=== PATIENT | male | born 1950 | race Caucasian/White ===

== ENCOUNTER → 2018-10-30 08:27 | Outpatient (CLI) | payer MEDICARE, OTHER, SELFPAY ==
[2018-10-30 10:33] LABS: Microalbumin,Random Urine < 5.0 mg/L (NO RANGE EST.)
[2018-10-30 10:38] LABS: Absolute Lymphocyte Count 1.74 X10^3/ul (0.83-4.51); Absolute Neutrophil Count 7.2 X10^3/uL (2.0-7.7); Basophil# 0.01 X10^3/uL; Basophil% 0.1 % (0-1); Hematocrit 50.5 % (40-54); Hemoglobin 16.7 g/dl (13.0-16.5); Lymphocyte # 1.74 X10^3/ul (4.0); Lymphocyte % 17.4 % (19-41); Mean Corp Hgb Conc 33.1 g/gl (32-36); Mean Corpuscular Hgb 30.8 pg (27.0-32.0); Mean Corpuscular Volume 93.2 fL (80-94); Mean Platelet Vol. 10.6 fl (6.2-12.0); Monocyte# 0.96 X10^3/uL; Monocyte% 9.6 % (0-10); Neutrophil # 7.17 X10^3/uL (2.7-7.7); Neutrophil % 71.6 % (47-70); Platelet Count 234 K/mm3 (150-450); RBC Distribution Width CV 13.2 % (11.6-14.6); Red Blood Count 5.42 M/mm3 (4.6-6.2)
[2018-10-30 10:39] LABS: POSITIVE COUNT NO; POSITIVE DIFFERENTIAL NO; POSITIVE MORPHOLOGY NO
[2018-10-30 10:55] LABS: ALB/GLOB Ratio 1.1 RATIO (0.9-2.4); AST(SGOT) 15 U/L (15-37); Alanine Aminotransfer ALT/SGPT 30 U/L (16-61); Albumin, Serum 3.7 g/dL (3.2-5.0); Alkaline Phosphatase 102 U/L (45-117); Anion Gap 7 (5-15); BUN 23 mg/dL (7-18); BUN/Creat Ratio 25.2 RATIO (10-20); Chloride 104 mmol/L (98-107); Cholesterol 184 mg/dL (200); Creatinine, Serum 0.91 mg/dL (0.70-1.30); EST Glomerular Filtration Rate 88 mL/min (>60); Est Glom Filt Rate - Afr Amer 107 mL/min (>60); Globulin 3.4 g/dL (2.2-4.2); Glucose 92 mg/dL (74-106); High Density Lipoprotein 59 mg/dL; Potassium 4.3 mmol/L (3.5-5.1); Protein, Total 7.1 g/dL (6.4-8.2); Sodium Level 139 mmol/L (136-145); Thyroid Stim Hormone (TSH) 1.76 uIU/mL (0.358-3.74); Triglycerides 96 mg/dL; Very Low Density Lipoprotein 19 mg/dL (5-40)
[2018-10-30 11:16] LABS: Vitamin D,25 Hydroxy 54.7 ng/mL (29.95-100.01)
--- OUTSIDE RECORDS SUMMARY | 2018-12-16 06:39 | XMS RPT_ITS ---
:1950 Author Organization OH[facility] Care Team Providers Name Role Phone Reid Maldonado Attending Unavailable Reid Maldonado Primary Care Unavailable PROBLEMS PROBLEMS No Problem Records FoundPROCEDURES PROCEDURES No Procedure Records FoundRESULTS RESULTS MICROALB:CREAT Collected: 10/30/2018 Status: F Source: [facility] 8:31 AM [facility] [place], [place] REPOSITORY TYPE CODE TESTS RESULT OUT OF RANGE REFERENCE UNITS LAB L501.1200 NO RANGE EST. mg/dL Normal UR 110.00 CREAT LAB L502.0500 NO RANGE EST. mg/L < 5.0 Normal MICROALBUMI N,UR LAB L502.0600 <30 mg/g CRE mg/g CRE Test Normal not performed MALB:CREAT Performed By: #### L502.0250, L100.0100, L500.4050, L500.4100, L501.9520, L506.1000 #### [facility] [address] [place], [place], [address] CBC W/DIFF, AUTOMATED Collected: 10/30/2018 Status: F Source: [place] 8:31 AM [facility] [place], [place] REPOSITORY TYPE CODE TESTS RESULT OUT OF RANGE REFERENCE UNITS LAB L100.1000 4.4-11.0 K/mm3 Normal WBC 10.0 LAB L100.1200 4.6-6.2 M/mm3 Normal RBC 5.42 LAB L100.1300 13.0-16.5 g/dl High HGB 16.7 LAB L100.1400 40-54 % Normal HCT 50.5 LAB L100.1500 80-94 fL Normal MCV 93.2 LAB L100.1600 27.0-32.0 pg Normal MCH 30.8 LAB L100.1700 32-36 g/gl Normal MCHC 33.1 LAB L100.1810 11.6-14.6 % Normal RDW CV 13.2 LAB L100.1820 35.1-43.9 fl High RDW SD 45.0 LAB L100.1900 150-450 K/mm3 Normal PLT 234 LAB L100.2000 6.2-12.0 fl Normal MPV 10.6 LAB L100.2100 47-70 % High NEUT% 71.6 LAB L100.2200 19-41 % Low LY% 17.4 LAB L100.2300 0-10 % Normal MONO% 9.6 LAB L100.2400 0-5 % Normal EO% 1.0 LAB L100.2500 0-1 % Normal BASO% 0.1 LAB L100.2550 0.0-0.9 % Normal IM GRAN % 0.300 Result Comment: IG% - Immature Granulocytes (promyelocytes, myelocytes and metamyelocytes) > 1% indicates that a LEFT SHIFT is Present. LAB L100.2620 2.0-7.7 X10 3/uL Normal Absolute Neut 7.2 LAB L100.2720 0.83-4.51 X10 3/ul Normal Absolute Lymph 1.74 Performed By: #### L502.0250, L100.0100, L500.4050, L500.4100, L501.9520, L506.1000 #### [facility] [address] [place], [place], [address] COMPREHENSIVE METABOLIC Collected: 10/30/2018 Status: F Source: [facility] 8:31 AM [facility] [place] [place] REPOSITORY TYPE CODE TESTS RESULT OUT OF RANGE REFERENCE UNITS LAB L501.0100 74-106 mg/dL Normal GLU 92 Result Comment: Please note revised GLUCOSE reference range effective 2017. LAB L501.1000 7-18 mg/dL High BUN 23 LAB L501.1100 0.70-1.30 mg/dL Normal CREAT,SERUM 0.91 Result Comment: The validity of the calculated GFR AND GFRAA in patients over 70 years has not been determined. Clinical correlation is essential. LAB L501.1110 >60 mL/min Normal EST GFR 88 Result Comment: Non- GFR Calc LAB L501.1115 >60 mL/min Normal EST GFR - AA 107 Result Comment: GFR Calc LAB L501.1300 10-20 RATIO High BUN/CRE 25.2 LAB L501.1500 6.4-8.2 g/dL T Normal PROT 7.1 LAB L501.1800 3.2-5.0 g/dL Normal ALB 3.7 LAB L501.1950 2.2-4.2 g/dL Normal GLOB 3.4 LAB L501.2000 0.9-2.4 RATIO Normal A/G 1.1 LAB L501.2200 8.5-10.1 mg/dL CA Normal 9.0 LAB L501.4100 15-37 U/L Normal AST 15 LAB L501.4305 45-117 U/L Normal ALK P 102 LAB L501.4405 16-61 U/L Normal ALT 30 LAB L501.4600 0.20-1.00 mg/dL T Normal BILI 0.70 LAB L501.5300 136-145 mmol/L NA Normal 139 LAB L501.5600 3.5-5.1 mmol/L K Normal 4.3 LAB L501.5900 98-107 mmol/L CL Normal 104 LAB L501.6100 21.0-32.0 mmol/L Normal CO2 28.0 LAB L501.6200 5-15 Normal GAP 7 Performed By: #### L502.0250, L100.0100, L500.4050, L500.4100, L501.9520, L506.1000 #### [facility] [address] [place], [place], [address] LIPID PROFILE Collected: 10/30/2018 Status: F Source: [place] 8:31 AM [facility] [place] [place] REPOSITORY TYPE CODE TESTS RESULT OUT OF RANGE REFERENCE UNITS LAB L501.4900 200 mg/dL Normal CHOL 184 Result Comment: <200 mg/dL Desirable 200-240 mg/dL Borderline >240 mg/dL High Risk LAB L501.5000 mg/dL Normal TRIG 96 Result Comment: The drugs N-Acetylcysteine and Metamizole may falsely depress this assay. Serum Triglycerides Reference Interval Normal <150 mg/dL Borderline high 150 - 199 mg/dL High 200 - 499 mg/dL Very High > or = 500 mg/dL LAB L501.6400 mg/dL Normal HDL 59 Result Comment: The drugs N-Acetylcysteine and Metamizole may falsely depress this assay. Reference Range HDL <40 mg/dL Low HDL Cholesterol HDL >or= 60 mg/dL High HDL Cholesterol LAB L501.6500 0-130 mg/dL Normal LDL 106 LAB L501.6600 5-40 mg/dL Normal VLDL 19 Performed By: #### L502.0250, L100.0100, L500.4050, L500.4100, L501.9520, L506.1000 #### [facility] [address] [place], [address] THYROID STIM HORMONE Collected: 10/30/2018 Status: F Source: [place] [facility] 8:31 AM [facility] [place] [place] REPOSITORY TYPE CODE TESTS RESULT OUT OF RANGE REFERENCE UNITS LAB L501.9520 0.358-3.74 uIU/mL Normal TSH 1.76 Performed By: #### L502.0250, L100.0100, L500.4050, L500.4100, L501.9520, L506.1000 #### [facility] [address] [place], [address] VITAMIN D,25 HYDROXY Collected: 10/30/2018 Status: F Source: [place] 8:31 AM [facility] [place] [place] REPOSITORY TYPE CODE TESTS RESULT OUT OF RANGE REFERENCE UNITS LAB L506.1000 29.95-100.01 ng/mL Normal Vitamin D 54.7 25-OH Result Comment: Vitamin D 25(OH) Status Range Deficiency <20 ng/mL (50nmol/L) Insuffciency 20 - 30 ng/mL (50 - 75 nmol/L) Sufficiency 30 - 100 ng/mL (75 - 250 nmol/L) Toxicity >100 ng/mL (>250 nmol/L) Performed By: #### L502.0250, L100.0100, L500.4050, L500.4100, L501.9520, L506.1000 #### [facility] [address] [place], [address] PROGRESS Observed: 04/18/2018 Status: COMPLETED Source: [employer] 11:23 AM [facility] [place] REPOSITORY HNO ID: [id number] Author: Danielle (Pt) JOSE ANTONIO Lopez Service: (none) Author Type: Physical Therapist Type: Progress Notes Filed: 04/18/2018 11:24 AM Note Text: [facility]ER[facility] PHYSICAL THERAPY DISCONTINUANCE OF CARE Plan of Care Period: Start of Care Date: 02/14/18 Last Visit Date: 03/08/18 Therapy Program: The following is a summary of the interventions provided for this episode of care; Therapeutic exercise, Manual therapy, Therapeutic activities and Patient/Family/Caregiver Education Assessment: The following is the goal status: Goal status as of 03/08/18 Goals for Episode of Care: created on 02/14/18 through 04/15/18 Independent in home exercises. Met Patient will decrease pain rating by 2 points to meet minimal clinical important difference for numeric pain rating scale. 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 Partially Met Maintain proper sitting posture throughout session. Met Patient will be able to tolerate sitting for 30 minutes without increased Symptoms. Met Patient will increase flexibility of hamstring to WNL to improve ability to maintain proper posture and restore normal mechanics. Met Patient will improve his/her AM-PAC T-scale score by 4 points to indicate a Minimal Clinical Important Difference. Initial score 59.46 Not met. Score increased by 1 point only. G CODE REPORTING Based on clinical assessment and the score on the AM-PAC Scale Score Assessment Tool, the G code and corresponding severity modifiers are documented below. Evaluation: 02/14/2018 Current Status: Mobility: Walking and Moving Around: G8978 CJ 20-39% impaired Goal Status: Mobility: Walking and Moving Around: G8979 CI 1-19% impaired Progress Report: 03/08/2018 Current Status: Mobility: Walking and Moving Around: G8978 CJ 20-39% impaired Goal Status: Mobility: Walking and Moving Around: G8979 CI 1-19% impaired Based on the most recent progress report, patient was progressing slower than expected toward functional goals based on pain levels, documented subjective information on progress and documented objective information regarding strength and overall function. Reason for Discontinuation of Care: Patient has not returned to therapy or scheduled additional follow-up appointments. Danielle Lopez PT PROGRESS Observed: 03/08/2018 Status: COMPLETED Source: [employer] 11:13 AM [facility] REPOSITORY HNO ID: [id number] Author: Danielle (Pt) JOSE ANTONIO Lopez Service: (none) Author Type: Physical Therapist Type: Progress Notes Filed: 03/08/2018 11:21 AM Note Text: Episode Visit Count: 7 Therapist That Will Oversee The Plan Of Care: Brandon Lopez Start of Care Date: 02/14/18 Onset Date: 12/17/17 Plan of Care Certification Date: 02/14/18 Patient Identified by Name and Date of : Yes REHABILITATION AND SPORTS THERAPY PHYSICAL THERAPY PROGRESS REPORT PLAN OF CARE UPDATE: Assessment: Prema Shaikh exhibits difficulty with continued instability and need for frequent change in position and improvements in overall lumbar ROM and flexibility. He continues to be limited with heavy exertion. He is progressing slower than expected towards his therapy goals as demonstrated by: pain levels, documented subjective information on progress and documented objective information regarding patient reported outcome measures. Further therapy is pending physician follow up tomorrow. Functional gains: Improved postural awareness Increased independence with HEP Goal status as of 03/08/18 Goals for Episode of Care: created on 02/14/18 through 04/15/18 Independent in home exercises. Met Patient will decrease pain rating by 2 points to meet minimal clinical important difference for numeric pain rating scale. 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 Partially Met Maintain proper sitting posture throughout session. Met Patient will be able to tolerate sitting for 30 minutes without increased Symptoms. Met Patient will increase flexibility of hamstring to WNL to improve ability to maintain proper posture and restore normal mechanics. Met Patient will improve his/her AM-PAC T-scale score by 4 points to indicate a Minimal Clinical Important Difference. Initial score 59.46 Not met. Score increased by 1 point only. G CODE REPORTING Based on clinical assessment and the score on the AM-PAC Scale Score Assessment Tool, the G code and corresponding severity modifiers are documented below. Evaluation: 02/14/2018 Current Status: Mobility: Walking and Moving Around: G8978 CJ 20-39% impaired Goal Status: Mobility: Walking and Moving Around: G8979 CI 1-19% impaired Progress Report: 03/08/2018 Current Status: Mobility: Walking and Moving Around: G8978 CJ 20-39% impaired Goal Status: Mobility: Walking and Moving Around: G8979 CI 1-19% impaired Planned Interventions, Frequency, and Duration: , Patient to be seen for PLAN FOR NEXT VISIT: hold therapy pending physician visit SUBJECTIVE: No significant change in symptoms. Does note some increased ease in lumbar extension, strength and balance. Sees physician tomorrow for possible spine injection. Pain Score: 5/10 Pain Location: Back;Hip - Left Description: Pressure Frequency: Continuous Post Treatment Pain Score: 6/10 Pain Location: Back Post Treatment Pain Description: Pressure OBJECTIVE MEASURES WITH LEVEL OF FUNCTION: Posture / Alignment Posture: Decreased lumbar lordosis LE Observations: more symmetrical WBing vs at evaluation Balance Static Standing Balance: Single Leg Stance Single Leg Stance: 10 sec R/L Lumbar Spine AROM Lumbar Flexion: Minimal limitation Lumbar Extension: Moderate limitation Lumbar R Side Chambers: Moderate limitation Lumbar L Side Chambers: Moderate limitation Lumbar R Rotation: Moderate limitation Lumbar L Rotation: Moderate limitataion LE Flexibility R Hamstring Flexibility: WFL L Hamstring Flexibility: WFL R Hip Flexor Flexibility: WFL L Hip Flexor Flexibility: WFL LE Strength R Hip Extension: 4+/5 L Hip Extension: 4+/5 TREATMENT: Therapeutic Exercise: 1: PPU with manual over pressure 10x 2 2: repex 16 degrees extensiom 6 degrees flexion 4.5 rpm 60 cycles 3: SLS R/L 4: seated decompression breathing Skilled Intervention: Patient was educated in proper exercise technique and purpose for exercises. Skilled judgment was provided in selection of appropriate interventions. Correct performance of therapeutic exercises was facilitated with verbal and tactile cuing. Manual over pressure for prone press up provided. Verbal review of home exercise program and instruction of progression of activity. Billing: Clarisse: Therapeutic Exercise ([id number]): 1:1 time: 45 minutes (3 units: 38-52 mins) Total time: 45 minutes Danielle Lopez PT CNTHERAPY Observed: 03/08/2018 Status: COMPLETED Source: [employer] 9:15 AM [facility] REPOSITORY OT/PT/Speech Visit (LDPT) PREMA SHAIKH ([id number]) 1950 M MACY Date Time Provider Department 03/08/18 9:15 AM DANIELLE LOPEZ (PT) LDPT Date Time Provider Department Center 03/08/2018 9:15 AM [id number], CHRISTI *LDPT [facility] [address] Reason for Visit: Physical Therapy [503] PT Progress Note [1596] PT Discharge [752] Reason For Visit History Recorded Primary Visit Diagnosis:Chronic midline low back pain with right-sided sciatica [M54.41, G89.29] Other Visit Diagnosis:Posture abnormality [R29.3] Allergies As of Date: 03/08/2018 Noted Allergy Reaction SEASONAL ALLERGIES 09/30/2014 14 - Other: See Comments Comments: Sneezing Date Reviewed: 02/14/2018 Reviewed by: Danielle (Pt) JOSE ANTONIO Lopez - Fully Assessed Prescriptions as of 03/08/2018 Sig: BLINK TEARS LUBRICATING EYE D* Use in both eyes as needed. FENOFIBRATE 160 MG TABLET Take 160 mg by mouth once benjamin* TIZANIDINE 4 MG CAPSULE Take 4 mg by mouth three time* ETODOLAC 400 MG TABLET Take 400 mg by mouth twice da* TRAMADOL 50 MG TABLET Take 50 mg by mouth every 6 h* ZINC MAGNESIUM 250 MG TABLET Take 250 mg by mouth. ASPIRIN 81 MG TABLET,DELAYED * Take 81 mg by mouth once mary* BUPRENORPHINE 10 MCG/HOUR WEE* Apply 1 Patch as directed onc* Progress Notes: Danielle Lopez, PT, PT 03/08/2018 11:21 AM Signed Episode Visit Count: 7 Therapist That Will Oversee The Plan Of Care: Brandon Lopez Start of Care Date: 02/14/18 Onset Date: 12/17/17 Plan of Care Certification Date: 02/14/18 Patient Identified by Name and Date of : Yes REHABILITATION AND SPORTS THERAPY PHYSICAL THERAPY PROGRESS REPORT PLAN OF CARE UPDATE: Assessment: Prema Shaikh exhibits difficulty with continued instability and need for frequent change in position and improvements in overall lumbar ROM and flexibility. He continues to be limited with heavy exertion. He is progressing slower than expected towards his therapy goals as demonstrated by: pain levels, documented subjective information on progress and documented objective information regarding patient reported outcome measures. Further therapy is pending physician follow up tomorrow. Functional gains: Improved postural awareness Increased independence with HEP Goal status as of 03/08/18 Goals for Episode of Care: created on 02/14/18 through 04/15/18 Independent in home exercises. Met Patient will decrease pain rating by 2 points to meet minimal clinical important difference for numeric pain rating scale. 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 Partially Met Maintain proper sitting posture throughout session. Met Patient will be able to tolerate sitting for 30 minutes without increased Symptoms. Met Patient will increase flexibility of hamstring to WNL to improve ability to maintain proper posture and restore normal mechanics. Met Patient will improve his/her AM-PAC T-scale score by 4 points to indicate a Minimal Clinical Important Difference. Initial score 59.46 Not met. Score increased by 1 point only. G CODE REPORTING Based on clinical assessment and the score on the AM-PAC Scale Score Assessment Tool, the G code and corresponding severity modifiers are documented below. Evaluation: 02/14/2018 Current Status: Mobility: Walking and Moving Around: G8978 20-39% impaired Goal Status: Mobility: Walking and Moving Around: G8979 CI 1-19% impaired Progress Report: 03/08/2018 Current Status: Mobility: Walking and Moving Around: G8978 CJ 20-39% impaired Goal Status: Mobility: Walking and Moving Around: G8979 CI 1-19% impaired Planned Interventions, Frequency, and Duration: , Patient to be seen for PLAN FOR NEXT VISIT: hold therapy pending physician visit SUBJECTIVE: No significant change in symptoms. Does note some increased ease in lumbar extension, strength and balance. Sees physician tomorrow for possible spine injection. Pain Score: 5/10 Pain Location: Back;Hip - Left Description: Pressure Frequency: Continuous Post Treatment Pain Score: 6/10 Pain Location: Back Post Treatment Pain Description: Pressure OBJECTIVE MEASURES WITH LEVEL OF FUNCTION: Posture / Alignment Posture: Decreased lumbar lordosis LE Observations: more symmetrical WBing vs at evaluation Balance Static Standing Balance: Single Leg Stance Single Leg Stance: 10 sec R/L Lumbar Spine AROM Lumbar Flexion: Minimal limitation Lumbar Extension: Moderate limitation Lumbar R Side Chambers: Moderate limitation Lumbar L Side Chambers: Moderate limitation Lumbar R Rotation: Moderate limitation Lumbar L Rotation: Moderate limitataion LE Flexibility R Hamstring Flexibility: WFL L Hamstring Flexibility: WFL R Hip Flexor Flexibility: WFL L Hip Flexor Flexibility: WFL LE Strength R Hip Extension: 4+/5 L Hip Extension: 4+/5 TREATMENT: Therapeutic Exercise: 1: PPU with manual over pressure 10x 2 2: repex 16 degrees extensiom 6 degrees flexion 4.5 rpm 60 cycles 3: SLS R/L 4: seated decompression breathing Skilled Intervention: Patient was educated in proper exercise technique and purpose for exercises. Skilled judgment was provided in selection of appropriate interventions. Correct performance of therapeutic exercises was facilitated with verbal and tactile cuing. Manual over pressure for prone press up provided. Verbal review of home exercise program and instruction of progression of activity. Billing: Clarisse: Therapeutic Exercise ([id number]): 1:1 time: 45 minutes (3 units: 38-52 mins) Total time: 45 minutes Danielle Lopez, PT Danielle Lopez, PT, PT 04/18/2018 11:24 AM Signed [facility] PHYSICAL THERAPY DISCONTINUANCE OF CARE Plan of Care Period: Start of Care Date: 02/14/18 Last Visit Date: 03/08/18 Therapy Program: The following is a summary of the interventions provided for this episode of care; Therapeutic exercise, Manual therapy, Therapeutic activities and Patient/Family/Caregiver Education Assessment: The following is the goal status: Goal status as of 03/08/18 Goals for Episode of Care: created on 02/14/18 through 04/15/18 Independent in home exercises. Met Patient will decrease pain rating by 2 points to meet minimal clinical important difference for numeric pain rating scale. 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 Partially Met Maintain proper sitting posture throughout session. Met Patient will be able to tolerate sitting for 30 minutes without increased Symptoms. Met Patient will increase flexibility of hamstring to WNL to improve ability to maintain proper posture and restore normal mechanics. Met Patient will improve his/her AM-PAC T-scale score by 4 points to indicate a Minimal Clinical Important Difference. Initial score 59.46 Not met. Score increased by 1 point only. G CODE REPORTING Based on clinical assessment and the score on the AM-PAC Scale Score Assessment Tool, the G code and corresponding severity modifiers are documented below. Evaluation: 02/14/2018 Current Status: Mobility: Walking and Moving Around: G8978 CJ 20-39% impaired Goal Status: Mobility: Walking and Moving Around: G8979 CI 1-19% impaired Progress Report: 03/08/2018 Current Status: Mobility: Walking and Moving Around: G8978 20-39% impaired Goal Status: Mobility: Walking and Moving Around: G8979 CI 1-19% impaired Based on the most recent progress report, patient was progressing slower than expected toward functional goals based on pain levels, documented subjective information on progress and documented objective information regarding strength and overall function. Reason for Discontinuation of Care: Patient has not returned to therapy or scheduled additional follow-up appointments. Danielle Lopez PT Letter Text PROGRESS Observed: 03/06/2018 Status: COMPLETED Source: [employer] 12:55 PM [facility] REPOSITORY HNO ID: [id number] Author: Miguel (Aysha) JOSE ANTONIO Aleman ASSIST Service: (none) Author Type: Precinct Captain Type: Progress Notes Filed: 03/06/2018 12:59 PM Note Text: Episode Visit Count: 6 Therapist That Will Oversee The Plan Of Care: Brandon Lopez Start of Care Date: 02/14/18 Onset Date: 12/17/17 Plan of Care Certification Date: 02/14/18 Patient Identified by Name and Date of : Yes REHABILITATION AND SPORTS THERAPY PHYSICAL THERAPY TREATMENT NOTE ASSESSMENT: Prema Shaikh demonstrated difficulty with improving mobility of lumbar spine. The patient will continue to benefit from continued skilled physical therapy for ROM of lumbar and sacral spine PLAN FOR NEXT VISIT: continue to address lumbar and sacral mobility, nueral glides bilateral le and core stabiity SUBJECTIVE: Pt reports large bruise on hip from fall last week, pt with 6-7/10 pain vs baseline of 5/10 unsure of cause of increased back pain. Pain Score: 7/10 Pain Location: Back;Hip - Left Description: Pressure Frequency: Continuous OBJECTIVE MEASURES WITH LEVEL OF FUNCTION: Pt no change in mobility of lumbar spine. TREATMENT: Therapeutic Exercise: 1: prone over thera ball, with pressure inferiorly on sacrum 30 sec x 4 2: repex 16 degrees extensiom 6 degrees flexion 4.0 rpm 40 cycles 3: hooklying lat pull downs denis tb 10 x 2 4: seated on t ball narrow base of support 30 sec, then chest press with lateral pull denis tb 10 x 2 r/l 5: SLS right/ left 10 sec x 4* l/r 6: slant board 2 min 7: manual hamstring stretch 30 sec x3, r/l Skilled Intervention: Patient was educated in proper exercise technique and purpose for exercises. Billing: Clarisse: Therapeutic Exercise ([id number]): 1:1 time: 45 minutes (3 units: 38-52 mins) Total time: 45 minutes Miguel Aleman PTA CNTHERAPY Observed: 03/06/2018 Status: COMPLETED Source: [employer] 7:45 AM [facility] REPOSITORY OT/PT/Speech Visit (LDPT) PREMA SHAIKH ([id number]) 1950 M [facility] Date Time Provider Department 03/06/18 7:45 AM MIGUEL ALEMAN (AYSHA) LDPT Date Time Provider Department Center 03/06/2018 7:45 AM [id number], PATRICK *LDPT [facility] [address] Reason for Visit: Physical Therapy [503] Primary Visit Diagnosis:Chronic midline low back pain with right-sided sciatica [M54.41, G89.29] Other Visit Diagnosis:Posture abnormality [R29.3] Allergies As of Date: 03/06/2018 Noted Allergy Reaction SEASONAL ALLERGIES 09/30/2014 14 - Other: See Comments Comments: Sneezing Date Reviewed: 02/14/2018 Reviewed by: Danielle (Pt) JOSE ANTONIO Lopez - Fully Assessed Prescriptions as of 03/06/2018 Sig: BLINK TEARS LUBRICATING EYE D* Use in both eyes as needed. FENOFIBRATE 160 MG TABLET Take 160 mg by mouth once benjamin* TIZANIDINE 4 MG CAPSULE Take 4 mg by mouth three time* ETODOLAC 400 MG TABLET Take 400 mg by mouth twice da* TRAMADOL 50 MG TABLET Take 50 mg by mouth every 6 h* ZINC MAGNESIUM 250 MG TABLET Take 250 mg by mouth. ASPIRIN 81 MG TABLET,DELAYED * Take 81 mg by mouth once mary* BUPRENORPHINE 10 MCG/HOUR WEE* Apply 1 Patch as directed onc* Progress Notes: Miguel Aleman PTA, PT ASSIST 03/06/2018 12:59 PM Signed Episode Visit Count: 6 Therapist That Will Oversee The Plan Of Care: Brandon Lopez Start of Care Date: 02/14/18 Onset Date: 12/17/17 Plan of Care Certification Date: 02/14/18 Patient Identified by Name and Date of : Yes REHABILITATION AND SPORTS THERAPY PHYSICAL THERAPY TREATMENT NOTE ASSESSMENT: Prema Shaikh demonstrated difficulty with improving mobility of lumbar spine. The patient will continue to benefit from continued skilled physical therapy for ROM of lumbar and sacral spine PLAN FOR NEXT VISIT: continue to address lumbar and sacral mobility, nueral glides bilateral le and core stabiity SUBJECTIVE: Pt reports large bruise on hip from fall last week, pt with 6-7/10 pain vs baseline of 5/10 unsure of cause of increased back pain. Pain Score: 7/10 Pain Location: Back;Hip - Left Description: Pressure Frequency: Continuous OBJECTIVE MEASURES WITH LEVEL OF FUNCTION: Pt no change in mobility of lumbar spine. TREATMENT: Therapeutic Exercise: 1: prone over thera ball, with pressure inferiorly on sacrum 30 sec x 4 2: repex 16 degrees extensiom 6 degrees flexion 4.0 rpm 40 cycles 3: hooklying lat pull downs denis tb 10 x 2 4: seated on t ball narrow base of support 30 sec, then chest press with lateral pull denis tb 10 x 2 r/l 5: SLS right/ left 10 sec x 4* l/r 6: slant board 2 min 7: manual hamstring stretch 30 sec x3, r/l Skilled Intervention: Patient was educated in proper exercise technique and purpose for exercises. Billing: Clarisse: Therapeutic Exercise ([id number]): 1:1 time: 45 minutes (3 units: 38-52 mins) Total time: 45 minutes Miguel Aleman PTA PROGRESS Observed: 03/01/2018 Status: COMPLETED Source: [employer] 9:35 AM [facility] REPOSITORY HNO ID: [id number] Author: Miguel Romero) JOSE ANTONIO Aleman ASSIST Service: (none) Author Type: Precinct Captain Type: Progress Notes Filed: 03/01/2018 9:47 AM Note Text: Episode Visit Count: 5 Therapist That Will Oversee The Plan Of Care: Brandon Lopez Start of Care Date: 02/14/18 Onset Date: 12/17/17 Plan of Care Certification Date: 02/14/18 Patient Identified by Name and Date of : Yes REHABILITATION AND SPORTS THERAPY PHYSICAL THERAPY TREATMENT NOTE ASSESSMENT: Prema Shaikh demonstrated difficulty with stability and balance with static and dynamic activities. The patient will continue to benefit from continued skilled physical therapy for lumbar and sacral mobility, and core stability. PLAN FOR NEXT VISIT: lumbar and sacral mobility SUBJECTIVE: Pt reports fell down steps today going to the bathroom landed on left thigh, back has normal 5/10 pain, left hip just sore Pain Score: 5/10 Pain Location: Back;Hip - Left Description: Pressure (pinching) Frequency: Continuous Post Treatment Pain Score: 5/10 Pain Location: Back Post Treatment Pain Description: Pressure (pinching) OBJECTIVE MEASURES WITH LEVEL OF FUNCTION: Pt with decreased mobility of sacrum with flexion and extension. TREATMENT: Therapeutic Exercise: 1: prone over thera ball, with pressure inferiorly on sacrum 30 sec x 4* 2: PPU with over pressure, PPU with exhale 10 x2 3: hooklying LTR L<=>R 5 x 4: foundation pose 5 sec 5 x 2 5: SLS right/ left 10 sec x 4* l/r 6: SLS with ball toss and catch 10 x R/L Skilled Intervention: Patient was educated in proper exercise technique and purpose for exercises. Reviewed and educated patient on additions/changes for home exercise program as above (*) Billing: Clarisse: Therapeutic Exercise ([id number]): 1:1 time: 45 minutes (3 units: 38-52 mins) Total time: 45 minutes Miguel Aleman PTA CNTHERAPY Observed: 03/01/2018 Status: COMPLETED Source: [employer] 7:45 AM [facility] REPOSITORY OT/PT/Speech Visit (LDPT) PREMA SHAIKH ([id number]) 1950 M [facility] Date Time Provider Department 03/01/18 7:45 AM MIGUEL ALEMAN (SPORTS NUTRITIONIST) LDPT Date Time Provider Department Center 03/01/2018 7:45 AM [id number], PATRICK *LDPT [facility] [address] Reason for Visit: Physical Therapy [503] Primary Visit Diagnosis:Chronic midline low back pain with right-sided sciatica [M54.41, G89.29] Other Visit Diagnosis:Posture abnormality [R29.3] Allergies As of Date: 03/01/2018 Noted Allergy Reaction SEASONAL ALLERGIES 09/30/2014 14 - Other: See Comments Comments: Sneezing Date Reviewed: 02/14/2018 Reviewed by: Danielle (Pt) JOSE ANTONIO Lopez - Fully Assessed Prescriptions as of 03/01/2018 Sig: BLINK TEARS LUBRICATING EYE D* Use in both eyes as needed. FENOFIBRATE 160 MG TABLET Take 160 mg by mouth once benjamin* TIZANIDINE 4 MG CAPSULE Take 4 mg by mouth three time* ETODOLAC 400 MG TABLET Take 400 mg by mouth twice da* TRAMADOL 50 MG TABLET Take 50 mg by mouth every 6 h* ZINC MAGNESIUM 250 MG TABLET Take 250 mg by mouth. ASPIRIN 81 MG TABLET,DELAYED * Take 81 mg by mouth once mary* BUPRENORPHINE 10 MCG/HOUR WEE* Apply 1 Patch as directed onc* Progress Notes: Miguel Aleman PTA, PT ASSIST 03/01/2018 9:47 AM Signed Episode Visit Count: 5 Therapist That Will Oversee The Plan Of Care: Brandon Lopez Start of Care Date: 02/14/18 Onset Date: 12/17/17 Plan of Care Certification Date: 02/14/18 Patient Identified by Name and Date of : Yes REHABILITATION AND SPORTS THERAPY PHYSICAL THERAPY TREATMENT NOTE ASSESSMENT: Prema Shaikh demonstrated difficulty with stability and balance with static and dynamic activities. The patient will continue to benefit from continued skilled physical therapy for lumbar and sacral mobility, and core stability. PLAN FOR NEXT VISIT: lumbar and sacral mobility SUBJECTIVE: Pt reports fell down steps today going to the bathroom landed on left thigh, back has normal 5/10 pain, left hip just sore Pain Score: 5/10 Pain Location: Back;Hip - Left Description: Pressure (pinching) Frequency: Continuous Post Treatment Pain Score: 5/10 Pain Location: Back Post Treatment Pain Description: Pressure (pinching) OBJECTIVE MEASURES WITH LEVEL OF FUNCTION: Pt with decreased mobility of sacrum with flexion and extension. TREATMENT: Therapeutic Exercise: 1: prone over thera ball, with pressure inferiorly on sacrum 30 sec x 4* 2: PPU with over pressure, PPU with exhale 10 x2 3: hooklying LTR L<=>R 5 x 4: foundation pose 5 sec 5 x 2 5: SLS right/ left 10 sec x 4* l/r 6: SLS with ball toss and catch 10 x R/L Skilled Intervention: Patient was educated in proper exercise technique and purpose for exercises. Reviewed and educated patient on additions/changes for home exercise program as above (*) Billing: Clarisse: Therapeutic Exercise ([id number]): 1:1 time: 45 minutes (3 units: 38-52 mins) Total time: 45 minutes Miguel Aleman PTA PROGRESS Observed: 02/27/2018 Status: COMPLETED Source: [employer] 8:21 AM [facility] REPOSITORY O ID: [id number] Author: Miguel Aleman PT ASSIST Service: (none) Author Type: Precinct Captain Type: Progress Notes Filed: 02/27/2018 8:25 AM Note Text: Episode Visit Count: 4 Therapist That Will Oversee The Plan Of Care: Brandon Lopez Start of Care Date: 02/14/18 Onset Date: 12/17/17 Plan of Care Certification Date: 02/14/18 Patient Identified by Name and Date of : Yes REHABILITATION AND SPORTS THERAPY PHYSICAL THERAPY TREATMENT NOTE ASSESSMENT: Prema Chilo demonstrated difficulty with increasing lumbar ROM The patient will continue to benefit from continued skilled physical therapy for progressing lumbar ROM, stretch hamstring and calf, and progress core stability. PLAN FOR NEXT VISIT: progress core stability continue with ROM lumbar spine , hamstring /calf stretch trial shuttle for progression of core stability SUBJECTIVE: pt reports 5/10 middle of low back pain pt feels a little better notes more muscle soreness. Pain Score: 5/10 Pain Location: Back Description: Radiating;Pressure Frequency: Continuous Post Treatment Pain Score: 5/10 Pain Location: Back Post Treatment Pain Description: Burning OBJECTIVE MEASURES WITH LEVEL OF FUNCTION: Pt with decreased lumbar ROM , left hamstring tighter than right. TREATMENT: Therapeutic Exercise: 1: PPU with over pressure, 10x 3, PPU with exhale 10 x1 2: manual hamstring stretch 30 sec x3, r/l 3: slant board 1 min 4: repex 13degrees extension, 4 degrees flexion, 3.5 rpm, 1 sec hold with extension 50 cycles 5: hooklying abdominal set with clamshell r/l 10 x 2 each green tb * 6: supine leg press 10 x r/l 5 sec hold denis tb* Skilled Intervention: Patient was educated in proper exercise technique and purpose for exercises. Reviewed and educated patient on additions/changes for home exercise program as above (*) Billing: Clarisse: Therapeutic Exercise ([id number]): 1:1 time: 50 minutes (3 units: 38-52 mins) Total time: 50 minutes Miguel Aleman PTA CNTHERAPY Observed: 02/27/2018 Status: COMPLETED Source: [employer] 7:00 AM [facility] REPOSITORY OT/PT/Speech Visit (LDPT) PREMA SHAIKH ([id number]) 1950 M [facility] Date Time Provider Department 02/27/18 7:00 AM MIGUEL ALEMAN (AYSHA) LDPT Date Time Provider Department Center 02/27/2018 7:00 AM [id number], PATRICK *LDPT [facility] [address] Reason for Visit: Physical Therapy [503] Primary Visit Diagnosis: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 FENOFIBRATE 160 MG TABLET Take 160 mg by mouth once benjamin* TIZANIDINE 4 MG CAPSULE Take 4 mg by mouth three time* ETODOLAC 400 MG TABLET Take 400 mg by mouth twice da* TRAMADOL 50 MG TABLET Take 50 mg by mouth every 6 h* ZINC MAGNESIUM 250 MG TABLET Take 250 mg by mouth. ASPIRIN 81 MG TABLET,DELAYED * Take 81 mg by mouth once mary* BUPRENORPHINE 10 MCG/HOUR WEE* Apply 1 Patch as directed onc* Progress Notes: Miguel Aleman, AYSHA, PT ASSIST 02/27/2018 8:25 AM Signed Episode Visit Count: 4 Therapist That Will Oversee The Plan Of Care: Brandon Lopez Start of Care Date: 02/14/18 Onset Date: 12/17/17 Plan of Care Certification Date: 02/14/18 Patient Identified by Name and Date of : Yes REHABILITATION AND SPORTS THERAPY PHYSICAL THERAPY TREATMENT NOTE ASSESSMENT: Prema Shaikh demonstrated difficulty with increasing lumbar ROM The patient will continue to benefit from continued skilled physical therapy for progressing lumbar ROM, stretch hamstring and calf, and progress core stability. PLAN FOR NEXT VISIT: progress core stability continue with ROM lumbar spine , hamstring /calf stretch trial shuttle for progression of core stability SUBJECTIVE: pt reports 5/10 middle of low back pain pt feels a little better notes more muscle soreness. Pain Score: 5/10 Pain Location: Back Description: Radiating;Pressure Frequency: Continuous Post Treatment Pain Score: 5/10 Pain Location: Back Post Treatment Pain Description: Burning OBJECTIVE MEASURES WITH LEVEL OF FUNCTION: Pt with decreased lumbar ROM , left hamstring tighter than right. TREATMENT: Therapeutic Exercise: 1: PPU with over pressure, 10x 3, PPU with exhale 10 x1 2: manual hamstring stretch 30 sec x3, r/l 3: slant board 1 min 4: repex 13degrees extension, 4 degrees flexion, 3.5 rpm, 1 sec hold with extension 50 cycles 5: hooklying abdominal set with clamshell r/l 10 x 2 each green tb * 6: supine leg press 10 x r/l 5 sec hold denis tb* Skilled Intervention: Patient was educated in proper exercise technique and purpose for exercises. Reviewed and educated patient on additions/changes for home exercise program as above (*) Billing: Clarisse: Therapeutic Exercise ([id number]): 1:1 time: 50 minutes (3 units: 38-52 mins) Total time: 50 minutes Miguel Aleman PTA PROGRESS Observed: 02/22/2018 Status: COMPLETED Source: [employer] 10:24 AM [facility] REPOSITORY O ID: [id number] Author: Danielle (Pt) JOSE ANTONIO Lopez Service: (none) Author Type: Physical Therapist Type: Progress Notes Filed: 02/22/2018 10:29 AM Note Text: Episode Visit Count: 3 Therapist That Will Oversee The Plan Of Care: Brandon Lopez Start of Care Date: 02/14/18 Onset Date: 12/17/17 Plan of Care Certification Date: 02/14/18 Patient Identified by Name and Date of : Yes REHABILITATION AND SPORTS THERAPY PHYSICAL THERAPY TREATMENT NOTE ASSESSMENT: Prema Shaikh demonstrated continued symptoms but more centralized. Increased extension ROM noted. The patient will continue to benefit from continued skilled physical therapy for core strengthening and extension protocol, body mechanics education. PLAN FOR NEXT VISIT: extension, core strengthening including gluts, assess use of lumbar support SUBJECTIVE: continues to report deep pain. No significant change in overall symptoms. Continues to perform HEP. Pain Score: 6/10 Pain Location: Back;Leg - Right Description: Radiating;Pressure;Sharp Frequency: Continuous OBJECTIVE MEASURES WITH LEVEL OF FUNCTION: LE Flexibility R Hamstring Flexibility: minimal tightness L Hamstring Flexibility: minimal tightness R Hip Flexor Flexibility: moderate tightness L Hip Flexor Flexibility: moderate tightness TREATMENT: Therapeutic Exercise: 1: PPU with over pressure, 10x 3 2: seated decompression 3: repex table flex 4, ext 13, 100 reps, 4.5 RPM 4: supine manual HS stretch with towel roll support at spine with ankle pumps 5: slant board 1' Skilled Intervention: Patient was educated in proper exercise technique and purpose for exercises. Skilled judgment was provided in selection of appropriate interventions. Correct performance of therapeutic exercises was facilitated with verbal cuing. Education regarding posture correction/use of lumbar roll Therapeutic Activity: 1: posture ed seated and standing, use of lumbar roll 2: body mechanics for light lifting 3: straight back bends, 10x Skilled Intervention: Instructed on proper lifting and carrying techniques with importance of core activation. Educated on proper/safe technique for activities performed today. Minimum verbal cues for maintaining neutral spine alignment. Billing: [place]: Therapeutic Exercise ([id number]): 1:1 time: 30 minutes (2 units: 23-37 mins) Therapeutic Activity ([id number]): 1:1 time: 15 minutes (1 unit: 8-22 mins) Total time: 45 minutes Danielle Lopez PT CNTHERAPY Observed: 02/22/2018 Status: COMPLETED Source: [employer] 9:15 AM [facility] REPOSITORY OT/PT/Speech Visit (LDPT) PREMA SHAIKH ([id number]) 1950 M [facility] Date Time Provider Department 02/22/18 9:15 AM DANIELLE LOPEZ (PT) LDPT Date Time Provider Department Center 02/22/2018 9:15 AM [id number], CHRISTI *LDPT [facility] [address] Reason for Visit: Physical Therapy [503] Primary Visit Diagnosis:Chronic midline low back pain with right-sided sciatica [M54.41, G89.29] Other Visit Diagnosis:Posture abnormality [R29.3] Allergies As of Date: 02/22/2018 Noted Allergy Reaction SEASONAL ALLERGIES 09/30/2014 14 - Other: See Comments Comments: Sneezing Date Reviewed: 02/14/2018 Reviewed by: Danielle (Pt) JOSE ANTONIO Lopez - Fully Assessed Prescriptions as of 02/22/2018 Sig: BLINK TEARS LUBRICATING EYE D* Use in both eyes as needed. FENOFIBRATE 160 MG TABLET Take 160 mg by mouth once benjamin* TIZANIDINE 4 MG CAPSULE Take 4 mg by mouth three time* ETODOLAC 400 MG TABLET Take 400 mg by mouth twice da* TRAMADOL 50 MG TABLET Take 50 mg by mouth every 6 h* ZINC MAGNESIUM 250 MG TABLET Take 250 mg by mouth. ASPIRIN 81 MG TABLET,DELAYED * Take 81 mg by mouth once mary* BUPRENORPHINE 10 MCG/HOUR WEE* Apply 1 Patch as directed onc* Progress Notes: Danielle Lopez PT, PT 02/22/2018 10:29 AM Signed Episode Visit Count: 3 Therapist That Will Oversee The Plan Of Care: Brandon Lopez Start of Care Date: 02/14/18 Onset Date: 12/17/17 Plan of Care Certification Date: 02/14/18 Patient Identified by Name and Date of : Yes REHABILITATION AND SPORTS THERAPY PHYSICAL THERAPY TREATMENT NOTE ASSESSMENT: Prema Shaikh demonstrated continued symptoms but more centralized. Increased extension ROM noted. The patient will continue to benefit from continued skilled physical therapy for core strengthening and extension protocol, body mechanics education. PLAN FOR NEXT VISIT: extension, core strengthening including gluts, assess use of lumbar support SUBJECTIVE: continues to report deep pain. No significant change in overall symptoms. Continues to perform HEP. Pain Score: 6/10 Pain Location: Back;Leg - Right Description: Radiating;Pressure;Sharp Frequency: Continuous OBJECTIVE MEASURES WITH LEVEL OF FUNCTION: LE Flexibility R Hamstring Flexibility: minimal tightness L Hamstring Flexibility: minimal tightness R Hip Flexor Flexibility: moderate tightness L Hip Flexor Flexibility: moderate tightness TREATMENT: Therapeutic Exercise: 1: PPU with over pressure, 10x 3 2: seated decompression 3: repex table flex 4, ext 13, 100 reps, 4.5 RPM 4: supine manual HS stretch with towel roll support at spine with ankle pumps 5: slant board 1' Skilled Intervention: Patient was educated in proper exercise technique and purpose for exercises. Skilled judgment was provided in selection of appropriate interventions. Correct performance of therapeutic exercises was facilitated with verbal cuing. Education regarding posture correction/use of lumbar roll Therapeutic Activity: 1: posture ed seated and standing, use of lumbar roll 2: body mechanics for light lifting 3: straight back bends, 10x Skilled Intervention: Instructed on proper lifting and carrying techniques with importance of core activation. Educated on proper/safe technique for activities performed today. Minimum verbal cues for maintaining neutral spine alignment. Billing: [place]: Therapeutic Exercise ([id number]): 1:1 time: 30 minutes (2 units: 23-37 mins) Therapeutic Activity ([id number]): 1:1 time: 15 minutes (1 unit: 8-22 mins) Total time: 45 minutes Danielle Lopez PT PROGRESS Observed: 02/20/2018 Status: COMPLETED Source: [employer] 7:55 AM [facility] REPOSITORY HNO ID: [id number] Author: Danielle (Pt) JOSE ANTONIO Lopez Service: (none) Author Type: Physical Therapist Type: Progress Notes Filed: 02/20/2018 8:07 AM Note Text: Episode Visit Count: 2 Therapist That Will Oversee The Plan Of Care: Brandon Lopez Start of Care Date: 02/14/18 Onset Date: 12/17/17 Plan of Care Certification Date: 02/14/18 Patient Identified by Name and Date of : Yes REHABILITATION AND SPORTS THERAPY PHYSICAL THERAPY TREATMENT NOTE ASSESSMENT: Prema Shaikh demonstrated improvements in lumbar extension ROM by end of session. The patient will continue to benefit from continued skilled physical therapy for extension or symptom reduction and core stabilization training and body mechanics education. PLAN FOR NEXT VISIT: assess response to heel lift, extension and lateral shift, core strengthening, body mechanics for lifting and basic ADL's SUBJECTIVE: reports feels pain is in the bone. States he has been performing lateral shifts 2x per day, 20 reps Symptoms are more central per patient report. Pain Score: 7/10 Pain Location: Back Description: Pressure;Dull;Spasm (centralized) Frequency: Continuous OBJECTIVE MEASURES WITH LEVEL OF FUNCTION: Posture / Alignment Leg Length Discrepency: L LE ~ 1/2 inch longer vs R L LE Anatomical Alignment Weight-Bearing: L LE Alignment Comment L LE Alignment Comment: ER in stance Spine Observations Spine Observations: Lumbar Spine AROM Lumbar Extension: Moderate limitation TREATMENT: Therapeutic Exercise: 1: PRONE PRESS UP 10x 2: PRONE PRESS UP with left lat shift 10x 3: PRONE PRESS UP with manual over pressure 10x 2 4: Repex table flex: 4 ext 5-13 degrees 5- 20 reps, 4.0rpm patient symptoms monitored throughout treatment with gradual increase in extension ROM as tolerated without radicular symptoms. 5: seated decompression breathing* Skilled Intervention: Patient was educated in proper exercise technique and purpose for exercises. Reviewed and educated patient on additions/changes for home exercise program as above (*) Skilled judgment was provided in selection of appropriate interventions. Correct performance of therapeutic exercises was facilitated with verbal and visual cuing. Therapeutic Activity: Skilled Intervention: Fit with heel lift to right shoe to accommodate 1/2 inch leg length discrepancy. Instructed patient in use/benefits. Posture education provided including importance of neutral spine and to avoid prolonged side sitting. Patient reported preference is to side sit leaning to the right. Assigned Home Exercise Program: 1: standing lateral shift to R, 10x 2x/day 2: PPU 10x 2x/day 3: seated decompression breathing Bria: Clarisse: Therapeutic Exercise ([id number]): 1:1 time: 30 minutes (2 units: 23-37 mins) Therapeutic Activity ([id number]): 1:1 time: 120 minutes (1 unit: 8-22 mins) Total time: 50 minutes Danielle Lopez PT CNTHERAPY Observed: 02/20/2018 Status: COMPLETED Source: [employer] 7:00 AM [facility] REPOSITORY OT/PT/Speech Visit (LDPT) PREMA SHAIKH ([id number]) 1950 [facility] Date Time Provider Department 02/20/18 7:00 AM DANIELLE LOPEZ (PT) LDPT Date Time Provider Department Center 02/20/2018 7:00 AM [id number], CHRISTI *LDPT [facility] [address] Reason for Visit: Physical Therapy [503] Primary Visit Diagnosis: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 FENOFIBRATE 160 MG TABLET Take 160 mg by mouth once benjamin* TIZANIDINE 4 MG CAPSULE Take 4 mg by mouth three time* ETODOLAC 400 MG TABLET Take 400 mg by mouth twice da* TRAMADOL 50 MG TABLET Take 50 mg by mouth every 6 h* ZINC MAGNESIUM 250 MG TABLET Take 250 mg by mouth. ASPIRIN 81 MG TABLET,DELAYED * Take 81 mg by mouth once mary* BUPRENORPHINE 10 MCG/HOUR WEE* Apply 1 Patch as directed onc* Progress Notes: Danielle Lopez, PT, PT 02/20/2018 8:07 AM Signed Episode Visit Count: 2 Therapist That Will Oversee The Plan Of Care: Brandon Lopez Start of Care Date: 02/14/18 Onset Date: 12/17/17 Plan of Care Certification Date: 02/14/18 Patient Identified by Name and Date of : Yes REHABILITATION AND SPORTS THERAPY PHYSICAL THERAPY TREATMENT NOTE ASSESSMENT: Prema Shaikh demonstrated improvements in lumbar extension ROM by end of session. The patient will continue to benefit from continued skilled physical therapy for extension or symptom reduction and core stabilization training and body mechanics education. PLAN FOR NEXT VISIT: assess response to heel lift, extension and lateral shift, core strengthening, body mechanics for lifting and basic ADL's SUBJECTIVE: reports feels pain is in the bone. States he has been performing lateral shifts 2x per day, 20 reps Symptoms are more central per patient report. Pain Score: 7/10 Pain Location: Back Description: Pressure;Dull;Spasm (centralized) Frequency: Continuous OBJECTIVE MEASURES WITH LEVEL OF FUNCTION: Posture / Alignment Leg Length Discrepency: L LE ~ 1/2 inch longer vs R L LE Anatomical Alignment Weight-Bearing: L LE Alignment Comment L LE Alignment Comment: ER in stance Spine Observations Spine Observations: Lumbar Spine AROM Lumbar Extension: Moderate limitation TREATMENT: Therapeutic Exercise: 1: PRONE PRESS UP 10x 2: PRONE PRESS UP with left lat shift 10x 3: PRONE PRESS UP with manual over pressure 10x 2 4: Repex table flex: 4 ext 5-13 degrees 5- 20 reps, 4.0rpm patient symptoms monitored throughout treatment with gradual increase in extension ROM as tolerated without radicular symptoms. 5: seated decompression breathing* Skilled Intervention: Patient was educated in proper exercise technique and purpose for exercises. Reviewed and educated patient on additions/changes for home exercise program as above (*) Skilled judgment was provided in selection of appropriate interventions. Correct performance of therapeutic exercises was facilitated with verbal and visual cuing. Therapeutic Activity: Skilled Intervention: Fit with heel lift to right shoe to accommodate 1/2 inch leg length discrepancy. Instructed patient in use/benefits. Posture education provided including importance of neutral spine and to avoid prolonged side sitting. Patient reported preference is to side sit leaning to the right. Assigned Home Exercise Program: 1: standing lateral shift to R, 10x 2x/day 2: PPU 10x 2x/day 3: seated decompression breathing Billing: [place]: Therapeutic Exercise (64683): 1:1 time: 30 minutes (2 units: 23-37 mins) Therapeutic Activity (87169): 1:1 time: 120 minutes (1 unit: 8-22 mins) Total time: 50 minutes Danielle Lopez PT PROGRESS Observed: 02/14/2018 Status: COMPLETED Source: [employer] 11:58 AM [facility] REPOSITORY [facility] ID: [id number] Author: Danielle MohanPt) JOSE ANTONIO Lopez Service: (none) Author Type: Physical Therapist Type: Progress Notes Filed: 02/14/2018 1:03 PM Note Text: Episode Visit Count: 1 Therapist That Will Oversee The Plan Of Care: Brandon Lopez Start of Care Date: 02/14/18 Onset Date: 12/17/17 Plan of Care Certification Date: 02/14/18 Patient Identified by Name and Date of : Yes REHABILITATION AND SPORTS THERAPY PHYSICAL THERAPY EVALUATION PLAN OF CARE: Assessment: Prema Shaikh presents with the chief complaint of low back pain. Has had chronic low back pain for years. Multiple rounds of spinal injections with moderate relief of symptoms. Current flare up began 2-3 months ago. He has had one injection since with reduction of radicular symptoms but continues with significant low back pain. No significant contributing medical history identified. He presents with impairments of lumbar ROM, scoliotic posture and need for frequent positional adjustments in static postures. He may benefit from skilled therapy services to improve lumbar ROM and core stability. Low Back Pain Subgroup Classification Low Back Pain Subgroup Classification: Specific exercise subgroup: recommended visits 8. Specific Exercies Subgroup Classification based on: centralization Prognosis: Good Good due to: current objective clinical presentation;within-session changes at evaluation;good support system/ coping skills Sessions to include core stabilization once centralization occurs with Japsal Protocol. Goals for Episode of Care: created on 02/14/18 through 04/15/18 Independent in home exercises. Patient will decrease pain rating by 2 points to meet minimal clinical important difference for numeric pain rating scale. 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 Maintain proper sitting posture throughout session Patient will be able to tolerate sitting for 30 minutes without increased symptoms. Patient will increase flexibility of hamstring to WNL to improve ability to maintain proper posture and restore normal mechanics. Patient will improve his/her AM-PAC T-scale score by 4 points to indicate a Minimal Clinical Important Difference. Initial score 59.46 G CODE REPORTING Based on clinical assessment and the score on the AM-PAC Scale Score Assessment Tool, the G code and corresponding severity modifiers are documented below. Evaluation: 02/14/2018 Current Status: Mobility: Walking and Moving Around: G8978 CJ 20-39% impaired Goal Status: Mobility: Walking and Moving Around: G8979 CI 1-19% impaired Planned Interventions, Frequency, and Duration: Current Frequency: 2x/week Duration: 6 weeks Total Number of Visits Planned: 12 Patient to be see for Planned Treatment Interventions: Therapeutic exercise;Neuromuscular re-education;Therapeutic activities;Patient/Family/Caregiver Education PLAN FOR NEXT VISIT: assess response to lateral shift, add extension if appropriate, decompression breathing Patient demonstrates good understanding of plan of care and treatment. The above goals and plan of care were discussed and agreed upon by patient/family. SUBJECTIVE: Prema Shaikh is a 67 year old male seen today for back pain, wants to avoid surgery Functional Limitations: carrying;heavy exertion;bending;sitting Prior Level of Function: Independent without limitations Patient Goals: to avoid surgery Intake Information: Prescription present Previous Treatment: Physical Therapy;Injections;Nerve Blocks;Chiropractor Relevant History Education Level: Bachelors Preferred Language: Indonesian Right or Left Handed: Right Employment: Retired Hobbies / Interests: farming Spine History Symptoms Location at Onset: Back Pain is Better Sometimes: On the Move Sleeping Position: Supine (moves to side or stomach at night) Sleep Affected by Pain: Pain awakens Red Flags Vertebral Fracture Clinical Reasoning: No identified risk factors Abdominal Aortic Aneurysm Clinical Reasoning: No identified risk factors. Cancer Clinical Reasoning: No identified risk factors. Infection Clinical Reasoning: No identified risk factors. Cauda Equina Syndrome Clinical Reasoning: No identified risk factors. Red Flags - Cervical Cancer Clinical Reasoning: No identified risk factors. Infection Clinical Reasoning: No identified risk factors. Pain Score: 7/10 Pain Location: Back Description: Pressure Frequency: Continuous Post Treatment Pain Score: 6/10 Pain Location: Back Post Treatment Pain Description: Sore OBJECTIVE MEASURES WITH LEVEL OF FUNCTION: Posture / Alignment Posture: Forward head;Decreased lumbar lordosis;Scoliosis;Increased thoracic kyphosis Scoliosis comment: hips to L, shoulders R LE Observations: WB primarily to L LE in standing Gait Assessment Gait Observation: forward flexed with lateral shift Balance Static Standing Balance: Single Leg Stance Single Leg Stance: 5 sec L, 2 sec R Spine Palpation R Lumbar Spine Palpation Tenderness: Paraspinals L Lumbar Spine Palpation Tenderness: Paraspinals Lumbar Spine AROM Lumbar Flexion: Moderate limitation Lumbar Extension: Major limitation Lumbar R Side Chambers: Major limitation Lumbar L Side Chambers: Moderate limitation Lumbar R Rotation: Major limitation Lumbar L Rotation: Major limitation Repeated Test Movements - Lumbar RFIS - Symptoms During: produces RFIL - Symptoms During: produces RFIL - Symptoms After: no effect REIL - Symptoms During: produces REIL - Symptoms After: centralized LE Flexibility Flexibility: Hamstring Flexibility;Hip External Rotation Flexibility;Hip Flexor Flexibility R Hamstring Flexibility: moderate tightness L Hamstring Flexibility: Moderate tightness R Hip Flexor Flexibility: moderate tightness L Hip Flexor Flexibility: moderate tightness R Hip External Rotation Flexibility: minimal tightness L Hip External Rotation Flexibility: moderate tightness LE Strength Trunk Strength: good- R LE Strength: 5/5 L LE Strength: 5/5 R Hip Extension: 4/5 L Hip Extension: 4/5 Special Tests - Hip and Spine Hip and Spine Special Tests: JACKIE Test JACKIE Test: Left Positive Education: Education Learning Preferences: Explanation;Demonstration Barriers: None Learning/educational needs: Home exercise program;Plan of Care;Posture;Dispatcher [employer] Education Provided: Yes, see treatment interventions for education provided Education Provided To: Patient Education Mode/Type: Explanation/Discussion;Demonstration Response to Education/Teach Back: Return Demonstration TREATMENT: Evaluation Therapeutic Exercise: 1: standing lateral shift, shift to R Skilled Intervention: Patient was educated in proper exercise technique and purpose for exercises. Skilled judgment was provided in selection of appropriate interventions. Correct performance of therapeutic exercises was facilitated with verbal, visual and tactile cuing. Billing: Clarisse: Evaluation - Low Complexity (18036) Therapeutic Exercise (43257): 1:1 time: 15 minutes (1 unit: 8-22 mins) Total time: 45 minutes Danielle Lopez PT CNTHERAPY Observed: 02/14/2018 Status: COMPLETED Source: [employer] 7:45 AM [facility] REPOSITORY OT/PT/Speech Visit (LDPT) PREMA SHAIKH ([id number]) 1950 [facility] Date Time Provider Department 02/14/18 7:45 AM DANIELLE LOPEZ (PT) LDPT Date Time Provider Department Center 02/14/2018 7:45 AM [id number], CHRISTI *LDPT [facility] [address] Reason for Visit: PT Eval [747] Primary Visit Diagnosis:Chronic midline low back pain, with sciatica presence unspecified [M54.5, G89.29] Other Visit Diagnosis:Posture abnormality [R29.3] Allergies As of Date: 02/14/2018 Noted Allergy Reaction SEASONAL ALLERGIES 09/30/2014 14 - Other: See Comments Comments: Sneezing Date Reviewed: 02/14/2018 Reviewed by: Danielle (Pt) JOSE ANTONIO Lopez - Fully Assessed Prescriptions as of 02/14/2018 Sig: BLINK TEARS LUBRICATING EYE D* Use in both eyes as needed. FENOFIBRATE 160 MG TABLET Take 160 mg by mouth once benjamin* TIZANIDINE 4 MG CAPSULE Take 4 mg by mouth three time* ETODOLAC 400 MG TABLET Take 400 mg by mouth twice da* TRAMADOL 50 MG TABLET Take 50 mg by mouth every 6 h* ZINC MAGNESIUM 250 MG TABLET Take 250 mg by mouth. ASPIRIN 81 MG TABLET,DELAYED * Take 81 mg by mouth once mary* BUPRENORPHINE 10 MCG/HOUR WEE* Apply 1 Patch as directed onc* Progress Notes: Danielle Lopez PT, PT 02/14/2018 1:03 PM Signed Episode Visit Count: 1 Therapist That Will Oversee The Plan Of Care: Brandon Lopez Start of Care Date: 02/14/18 Onset Date: 12/17/17 Plan of Care Certification Date: 02/14/18 Patient Identified by Name and Date of : Yes REHABILITATION AND SPORTS THERAPY PHYSICAL THERAPY EVALUATION PLAN OF CARE: Assessment: Prema Shaikh presents with the chief complaint of low back pain. Has had chronic low back pain for years. Multiple rounds of spinal injections with moderate relief of symptoms. Current flare up began 2- 3 months ago. He has had one injection since with reduction of radicular symptoms but continues with significant low back pain. No significant contributing medical history identified. He presents with impairments of lumbar ROM, scoliotic posture and need for frequent positional adjustments in static postures. He may benefit from skilled therapy services to improve lumbar ROM and core stability. Low Back Pain Subgroup Classification Low Back Pain Subgroup Classification: Specific exercise subgroup: recommended visits 8. Specific Exercies Subgroup Classification based on: centralization Prognosis: Good Good due to: current objective clinical presentation;within- session changes at evaluation;good support system/ coping skills Sessions to include core stabilization once centralization occurs with Jaspal Protocol. Goals for Episode of Care: created on 02/14/18 through 04/15/18 Independent in home exercises. Patient will decrease pain rating by 2 points to meet minimal clinical important difference for numeric pain rating scale. 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 Maintain proper sitting posture throughout session Patient will be able to tolerate sitting for 30 minutes without increased symptoms. Patient will increase flexibility of hamstring to WNL to improve ability to maintain proper posture and restore normal mechanics. Patient will improve his/her AM-PAC T-scale score by 4 points to indicate a Minimal Clinical Important Difference. Initial score 59.46 G CODE REPORTING Based on clinical assessment and the score on the AM-PAC Scale Score Assessment Tool, the G code and corresponding severity modifiers are documented below. Evaluation: 02/14/2018 Current Status: Mobility: Walking and Moving Around: G8978 CJ 20-39% impaired Goal Status: Mobility: Walking and Moving Around: G8979 CI 1-19% impaired Planned Interventions, Frequency, and Duration: Current Frequency: 2x/week Duration: 6 weeks Total Number of Visits Planned: 12 Patient to be see for Planned Treatment Interventions: Therapeutic exercise;Neuromuscular re-education;Therapeutic activities;Patient/Family/Caregiver Education PLAN FOR NEXT VISIT: assess response to lateral shift, add extension if appropriate, decompression breathing Patient demonstrates good understanding of plan of care and treatment. The above goals and plan of care were discussed and agreed upon by patient/family. SUBJECTIVE: Prema Shaikh is a 67 year old male seen today for back pain, wants to avoid surgery Functional Limitations: carrying;heavy exertion;bending;sitting Prior Level of Function: Independent without limitations Patient Goals: to avoid surgery Intake Information: Prescription present Previous Treatment: Physical Therapy;Injections;Nerve Blocks;Chiropractor Relevant History Education Level: Bachelors Preferred Language: Indonesian Right or Left Handed: Right Employment: Retired Hobbies / Interests: farming Spine History Symptoms Location at Onset: Back Pain is Better Sometimes: On the Move Sleeping Position: Supine (moves to side or stomach at night) Sleep Affected by Pain: Pain awakens Red Flags Vertebral Fracture Clinical Reasoning: No identified risk factors Abdominal Aortic Aneurysm Clinical Reasoning: No identified risk factors. Cancer Clinical Reasoning: No identified risk factors. Infection Clinical Reasoning: No identified risk factors. Cauda Equina Syndrome Clinical Reasoning: No identified risk factors. Red Flags - Cervical Cancer Clinical Reasoning: No identified risk factors. Infection Clinical Reasoning: No identified risk factors. Pain Score: 7/10 Pain Location: Back Description: Pressure Frequency: Continuous Post Treatment Pain Score: 6/10 Pain Location: Back Post Treatment Pain Description: Sore OBJECTIVE MEASURES WITH LEVEL OF FUNCTION: Posture / Alignment Posture: Forward head;Decreased lumbar lordosis;Scoliosis;Increased thoracic kyphosis Scoliosis comment: hips to L, shoulders R LE Observations: WB primarily to L LE in standing Gait Assessment Gait Observation: forward flexed with lateral shift Balance Static Standing Balance: Single Leg Stance Single Leg Stance: 5 sec L, 2 sec R Spine Palpation R Lumbar Spine Palpation Tenderness: Paraspinals L Lumbar Spine Palpation Tenderness: Paraspinals Lumbar Spine AROM Lumbar Flexion: Moderate limitation Lumbar Extension: Major limitation Lumbar R Side Chambers: Major limitation Lumbar L Side Chambers: Moderate limitation Lumbar R Rotation: Major limitation Lumbar L Rotation: Major limitation Repeated Test Movements - Lumbar RFIS - Symptoms During: produces RFIL - Symptoms During: produces RFIL - Symptoms After: no effect REIL - Symptoms During: produces REIL - Symptoms After: centralized LE Flexibility Flexibility: Hamstring Flexibility;Hip External Rotation Flexibility;Hip Flexor Flexibility R Hamstring Flexibility: moderate tightness L Hamstring Flexibility: Moderate tightness R Hip Flexor Flexibility: moderate tightness L Hip Flexor Flexibility: moderate tightness R Hip External Rotation Flexibility: minimal tightness L Hip External Rotation Flexibility: moderate tightness LE Strength Trunk Strength: good- R LE Strength: 5/5 L LE Strength: 5/5 R Hip Extension: 4/5 L Hip Extension: 4/5 Special Tests - Hip and Spine Hip and Spine Special Tests: JACKIE Test JACKIE Test: Left Positive Education: Education Learning Preferences: Explanation;Demonstration Barriers: None Learning/educational needs: Home exercise program;Plan of Care;Posture;Dispatcher [employer] Education Provided: Yes, see treatment interventions for education provided Education Provided To: Patient Education Mode/Type: Explanation/Discussion;Demonstration Response to Education/Teach Back: Return Demonstration TREATMENT: Evaluation Therapeutic Exercise: 1: standing lateral shift, shift to R Skilled Intervention: Patient was educated in proper exercise technique and purpose for exercises. Skilled judgment was provided in selection of appropriate interventions. Correct performance of therapeutic exercises was facilitated with verbal, visual and tactile cuing. Bria: Clarisse: Evaluation - Low Complexity (73699) Therapeutic Exercise (19085): 1:1 time: 15 minutes (1 unit: 8-22 mins) Total time: 45 minutes Danielle Lopez PT Letter Text LUMBOSACRAL SPINE MIN 4 Observed: 01/10/2018 Status: F Source: [place] [employer] VIEWS 2:12 PM HEALTH SYSTEM REPOSITORY Performed at [facility] APPROVED BY: Contreras Lunsford MD EXAM TITLE: LUMBOSACRAL SPINE MIN 4 VIEWS DATE: 01/10/2018 12:57 COMPARISON: MRI of the lumbosacral spine from the same day CLINICAL INDICATION/HISTORY: The patient is a 67-year-old male with bilateral radicular leg pain and low back pain TECHNIQUE: AP, lateral, cone down lateral and oblique views of the lumbar spine are presented. FINDINGS: There are five ztz-lfa-[id number] lumbar vertebra although L5 shows partial sacralization. No fracture or subluxations are noted. There is a dextroscoliosis with apex of curvature localized to L1-2. There is loss of disc space height and endplate sclerosis and prominent anterior osteophyte formation at T12-L1. There is loss of disc space height at L3-4 and L4-5. Smaller osteophytes involve the rest of the lumbar endplates. In general the bones are demineralized. IMPRESSION: There is lumbar spondylosis and levoscoliosis with disc space narrowing at T12-L1, L3-4, and L4-5. There is no fracture or destructive process. MRI LUMBAR SPINE W/O Observed: 01/10/2018 Status: F Source: [employer] CONTRAST 1:47 PM HEALTH SYSTEM REPOSITORY Performed at [facility] APPROVED BY: Antione Katz MD LUMBAR SPINE MRI WITHOUT CONTRAST ENHANCEMENT Serial images were obtained in the sagittal plane with T1W, T2W, T2*W, and with a STIR sequence and in the transverse plane with T1W and T2W. The study was performed to further evaluate low back pain w ith radiation into the left lower extremity. Serial images demonstrate the presence of a far lateral focal protrusion of the intervertebral disc at the L3-L4 level of relatively small size with rostral extension. There is associated compromise of the exiting left L3 nerve root at the level of the left L3-L4 neural foramen. Due to the far lateral position of the disc material, there is no significant associated compromise of the thecal sac or of the proximal left L4 nerve root. The conus medullaris demonstrates normal caliber and signal intensity. There is no definite evidence of significant degenerative stenosis or of an intraspinal or paraspinal soft tissue mass. Intervert ebral disc and facet degeneration is identified, most significant at the T12-L1 level. The alignment is essentially anatomic except for a mild thoracolumbar dextroscoliosis. IMPRESSION: 1. Far lateral extruded disc fragment on the left at the L3-L4 level as described above with rostral extension. There is associated compromise of the exiting left L3 nerve root at the level of the left L3-L4 neural foramen. 2. Intervertebral disc and facet degeneration as noted in conjunction with a mild thoracolumbar dextroscoliosis. ALLERGIES ALLERGIES No Allergies Records FoundENCOUNTERS ENCOUNTERS ADMIT/DISCHARGE ACCOUNT ADMITTING ENCOUNTER LOCATION SOURCE NUMBER CLASS 10/30/2018 [id number] Ambulatory [place] [address] [facility] ing:MFPLAB Repository PAYERS PAYERS ENCOUNTER GUARANTOR PAYER SUBSCRIBER SOURCE 10/30/2018 Prema Rodrigues Primary Prema Shaikh[address] Insurance:MEDICARE [place]iloDOB: [address], [address] olic [id number] [facility] [address]Fcp: Number: Repository [id number] () Date:2018-10-30 10/30/2018 Secondary Prema Bolton Insurance:AARPPolicy [place]OB: [facility] Number: [id number] [id number] Repository Date:3722-01-72[address], [place] [address]DE: 10/30/2018 Tertiary NOT GIVENUNK Hoang Insurance:SELF PAY [facility] Number: Effective Repository Date:2018-10-30
== END ==
PROVIDERS: Family Provider Family Medicine; PCP Family Medicine; Visit Provider Family Medicine
DX: G43.909 Migraine, unspecified, not intractable, without status migrainosus (principal); E78.1 Pure hyperglyceridemia; M51.37 Other intervertebral disc degeneration, lumbosacral region
CPT/HCPCS: 36415; 80053; 80061; 82043; 82306; 82570; 84443; 85025

== ENCOUNTER → 2021-04-15 09:21 | Outpatient (CLI) | payer MEDICARE, OTHER, SELFPAY ==
[2021-04-15 10:08] LABS: Absolute Lymphocyte Count 1.38 X10^3/uL (0.83-4.51); Absolute Neutrophil Count 3.8 X10^3/uL (2.0-7.7); Basophil# 0.04 X10^3/uL; Basophil% 0.6 % (0-1); Eosinophil# 0.34 X10^3/uL; Eosinophils% 5.3 % (0-5); Hematocrit 47.2 % (40-54); Lymphocyte # 1.38 X10^3/ul (0.83-4.51); Lymphocyte % 21.7 % (19-41); Mean Corp Hgb Conc 31.8 g/dL (32-36); Mean Corpuscular Hgb 29.8 pg (27.0-32.0); Mean Corpuscular Volume 93.7 fL (80-94); Monocyte# 0.74 X10^3/uL; Monocyte% 11.6 % (0-10); NRBC Flagged by Analyzer 0 % (0-5); Neutrophil # 3.83 X10^3/uL (2.7-7.7); Neutrophil % 60.2 % (47-70); Platelet Count 223 K/mm3 (150-450); RBC Distribution Width CV 12.7 % (11.6-14.6); RBC Distribution Width SD 44.1 fl (35.1-43.9); Red Blood Count 5.04 M/mm3 (4.6-6.2); White Blood Count 6.4 K/mm3 (4.4-11.0)
[2021-04-15 11:07] LABS: ALB/GLOB Ratio 1.2 RATIO (0.9-2.4); AST(SGOT) 18 U/L (15-37); Alanine Aminotransfer ALT/SGPT 28 U/L (16-61); Albumin, Serum 3.5 g/dL (3.2-5.0); Alkaline Phosphatase 139 U/L (45-117); Anion Gap 6 (5-15); BUN 22 mg/dL (7-18); BUN/Creat Ratio 25.1 RATIO (10-20); Calcium,Total 8.8 mg/dL (8.5-10.1); Chloride 106 mmol/L (98-107); Cholesterol 166 mg/dL (200); Creatinine, Serum 0.88 mg/dL (0.70-1.30); EST Glomerular Filtration Rate 91 mL/min (>60); Est Glom Filt Rate - Afr Amer 111 mL/min (>60); Globulin 2.8 g/dL (2.2-4.2); Glucose 87 mg/dL (74-106); High Density Lipoprotein 44 mg/dL; PSA,Total- Diagnostic 3.66 ng/mL (0.0-4.0); Potassium 4.4 mmol/L (3.5-5.1); Protein, Total 6.3 g/dL (6.4-8.2); Sodium Level 140 mmol/L (136-145); Triglycerides 110 mg/dL; Very Low Density Lipoprotein 22 mg/dL (5-40)
[2021-04-15 11:48] LABS: Hepatitis C Antibody Non-Reactive (Nonreactive)
== END ==
PROVIDERS: PCP Family Medicine; Referring Provider Family Medicine; Visit Provider Family Medicine
DX: M54.9 Dorsalgia, unspecified (principal); E78.1 Pure hyperglyceridemia; N40.0 Benign prostatic hyperplasia without lower urinary tract symptoms
CPT/HCPCS: 36415; 80053; 80061; 84153; 84443; 85025; 86803

== ENCOUNTER → 2022-04-20 | Outpatient (CLI) | payer MEDICARE, OTHER, SELFPAY ==
[2022-04-20 12:19] LABS: Absolute Lymphocyte Count 1.96 X10^3/uL (0.83-4.51); Absolute Neutrophil Count 5.7 X10^3/uL (2.0-7.7); Basophil# 0.06 X10^3/uL; Basophil% 0.7 % (0-1); Eosinophil# 0.38 X10^3/uL; Eosinophils% 4.2 % (0-5); Hematocrit 47.7 % (40-54); Hemoglobin 15.5 g/dL (13.0-16.5); Lymphocyte # 1.96 X10^3/ul (0.83-4.51); Lymphocyte % 21.9 % (19-41); Mean Corp Hgb Conc 32.5 g/dL (32-36); Mean Corpuscular Volume 92.4 fL (80-94); Mean Platelet Vol. 10.9 fl (6.2-12.0); Monocyte# 0.86 X10^3/uL; Monocyte% 9.6 % (0-10); NRBC Flagged by Analyzer 0 % (0-5); Neutrophil # 5.66 X10^3/uL (2.7-7.7); Neutrophil % 63.2 % (47-70); Platelet Count 262 K/mm3 (150-450); RBC Distribution Width CV 12.6 % (11.6-14.6); RBC Distribution Width SD 42.9 fl (35.1-43.9); Red Blood Count 5.16 M/mm3 (4.6-6.2)
[2022-04-20 13:09] LABS: AST(SGOT) 23 U/L (15-37); Alanine Aminotransfer ALT/SGPT 26 U/L (16-61); Albumin, Serum 3.5 g/dL (3.2-5.0); Alkaline Phosphatase 132 U/L (45-117); Anion Gap 7 (5-15); BUN 30 mg/dL (7-18); BUN/Creat Ratio 26.5 RATIO (10-20); Bilirubin, Direct 0.21 mg/dL (0.00-0.30); Calcium,Total 9.6 mg/dL (8.5-10.1); Chloride 106 mmol/L (98-107); Cholesterol 166 mg/dL (200); Creatinine, Serum 1.13 mg/dL (0.70-1.30); EST Glomerular Filtration Rate 68 mL/min (>60); Est Glom Filt Rate - Afr Amer 82 mL/min (>60); Globulin 3.3 g/dL (2.2-4.2); Glucose 99 mg/dL (74-106); High Density Lipoprotein 40 mg/dL; Potassium 4.9 mmol/L (3.5-5.1); Protein, Total 6.8 g/dL (6.4-8.2); Sodium Level 140 mmol/L (136-145); Triglycerides 72 mg/dL; Very Low Density Lipoprotein 14 mg/dL (5-40)
== END | disposition home or self-care (01) ==
LOC: MFPLAB 09:35
PROVIDERS: PCP Family Medicine; Visit Provider Family Medicine
DX: J30.9 Allergic rhinitis, unspecified (principal); E78.1 Pure hyperglyceridemia; Z12.5 Encounter for screening for malignant neoplasm of prostate
CPT/HCPCS: 36415; 80048; 80061; 80076; 84153; 85025; G0103

== ENCOUNTER → 2022-05-12 | Outpatient (CLI) | payer MEDICARE, OTHER, SELFPAY ==
--- NOTE | 2022-05-12 12:45 | CT_ITS ---
EXAM: CT MAXILLOFACIAL SINUSES WITHOUT INTRAVENOUS CONTRAST CLINICAL INDICATION: SINUSITIS TECHNIQUE: Helically acquired images were obtained of the maxillofacial sinuses without intravenous contrast. This CT exam was performed using one or more of the following dose reduction techniques: automated exposure control, adjustment of the mA and/or kV according to patient size, and/or use of iterative reconstruction technique. This report was created using [employer] report generation technology. RADIATION DOSE: CTDIvol = 3306 mGy, DLP = 871.04 mGy-cm. COMPARISON: None. FINDINGS: MAXILLARY SINUSES: Diffuse mucosal thickening of the right maxillary sinus. Ostiomeatal complexes are normally formed. SPHENOID SINUSES: Clear. FRONTAL SINUSES: Clear. ETHMOID AIR CELLS: Clear. NASAL CAVITY/SEPTUM: Bilateral small nasal antral windows. Nasal septum is midline. Nasal turbinates are unremarkable. BONES/JOINTS: Anterior cranial fossa is unremarkable. ORBITS: Unremarkable. DENTAL: Unremarkable as visualized. No periodontal osseous erosion. CT/Sinus/Facial Bone IMPRESSION: 1. Diffuse mucosal thickening of the right maxillary sinus. 2. Bilateral small nasal antral windows. Electronically Signed: Kit Zambrano MD at 4:26 EDT ,
== END | disposition home or self-care (01) ==
LOC: CT 12:39
PROVIDERS: PCP Family Medicine; Referring Provider Otolaryngology; Visit Provider Otolaryngology
DX: J32.8 Other chronic sinusitis (principal)
CPT/HCPCS: 70486

== ENCOUNTER → 2022-07-05 | Outpatient (CLI) | payer MEDICARE, OTHER, SELFPAY ==
--- NOTE | 2022-07-05 08:00 | PROSBIL_PTH ---
PATIENT: PREMA SHAIKH LOC: [facility] U#:[id number] AGE/SX: 71/M ROOM: RE07/05/[address]: Dr. Ron Fernandez MD : 1950 BED: DIS: 07/05/2022 SPEC #: [id number] RECD: 07/05/22 16:29 STATUS: BRIGHT SARI #: [id number] ROSANA: 07/05/22 08:[address]: Ron Fernandez DEPT: SURGICAL PATHOLOGY RECD BY: Marcus Coleman ENTERED: 07/06/22 07:34 SP TYPE: PROST BX PAPO DR: Dr. Reid Maldonado MD Tissues: A - PROSTATE RIGHT B - PROSTATE RIGHT C - PROSTATE RIGHT D - PROSTATE LEFT E - PROSTATE LEFT F - PROSTATE LEFT Procedures: PROSTATE BX HEADER OPERATION: Prostate biopsy PRE-OP DIAGNOSIS: R97.20 TISSUE SUBMITTED: A-Right apex, B-Right mid, C-Right base, D-Left mid, E-Left base, F-Left base MICROSCOPIC DIAGNOSIS A. Right prostate, apex, core biopsy: Mild chronic inflammation, B. Right prostate, mid, core biopsy: Glandular atrophy and mild chronic inflammation. C. Right prostate, base, core biopsy: Glandular atrophy and mild chronic inflammation. D. Left prostate, mid, core biopsy: Glandular atrophy and mild chronic inflammation. E. Left prostate, base, core biopsy: Glandular atrophy and mild chronic inflammation. F. Left prostate, base, core biopsy: Mild chronic inflammation. AM:sena 07/07/2022 MICROSCOPIC DESCRIPTION Slides are reviewed. GROSS DESCRIPTION A - Received is one container designated prostate, right apex. The specimen consists of two elongated fragments of light hamilton-white soft tissue measuring 1.0 and 1.4 cm in length and 0.1 cm in diameter. The specimen is totally submitted in one cassette. B - Received is one container designated prostate, right mid. The specimen consists of two elongated fragments of light hamilton-white soft tissue measuring 0.7 and 1.5 cm in length and 0.1 cm in diameter. The specimen is totally submitted in one cassette. C - Received is one container designated prostate, right base. The specimen consists of two elongated fragments of light hamilton-white soft tissue each measuring 1.5 cm in length and 0.1 cm in diameter. The specimen is totally submitted in one cassette. D - Received is one container designated prostate, left mid. The specimen consists of two elongated fragments of light hamilton-white soft tissue measuring 1.0 and 1.8 cm in length and 0.1 cm in diameter. The specimen is totally submitted in one cassette. E - Received is one container designated prostate, left base. The specimen consists of two elongated fragments of light hamilton-white soft tissue measuring 0.8 and 1.5 cm in length and 0.1 cm in diameter. The specimen is totally submitted in one cassette. F - Received is one container designated prostate, left base. The specimen consists of two elongated fragments of light hamilton-white soft tissue measuring 1.0 and 1.5 cm in length and 0.1 cm in diameter. The specimen is totally submitted in one cassette. / SJ:cc 07/06/22 TC:3 CPT: 98054 x6
== END | disposition home or self-care (01) ==
LOC: LABSPEC 16:31
PROVIDERS: PCP Family Medicine; Referring Provider Urology; Visit Provider Urology
DX: R97.20 Elevated prostate specific antigen [PSA] (principal)
CPT/HCPCS: 88305; G0416

== ENCOUNTER → 2022-11-16 | Outpatient (CLI) | payer MEDICARE, OTHER, SELFPAY ==
[2022-11-16 14:55] LABS: PSA,Total- Diagnostic 2.74 ng/mL (0.0-4.0)
== END | disposition home or self-care (01) ==
LOC: LAB 13:27
PROVIDERS: PCP Family Medicine; Visit Provider Registered Nurse
DX: R97.20 Elevated prostate specific antigen [PSA] (principal)
CPT/HCPCS: 36415; 84153

== ENCOUNTER → 2023-11-10 | Outpatient (CLI) | payer MEDICARE, OTHER, SELFPAY ==
[2023-11-10 11:41] LABS: PSA,Total - Annual Screen 2.86 ng/mL (0.00-4.00)
== END | disposition home or self-care (01) ==
PROVIDERS: PCP Family Medicine; Visit Provider Urology
DX: Z12.5 Encounter for screening for malignant neoplasm of prostate (principal)
CPT/HCPCS: 36415; 84153; G0103

== ENCOUNTER → 2024-05-10 | Outpatient (CLI) | payer MEDICARE, OTHER, SELFPAY ==
--- NOTE | 2024-05-10 12:46 | RAD_ITS ---
INDICATION: HIP PAIN feels like both of the hips pop when they walk. EXAMINATION/TECHNIQUE: X-RAY - XR Hips Bilateral with Pelvis when performed; 2 Views COMPARISON: None. FINDINGS: No fracture demonstrated. Femoral heads are normal in contour. No dislocation at the hips. Minimal degenerative changes at the hips. Degenerative changes of the lower lumbar spine. RAD/Hips B/L min 2 views w/ Pelvis IMPRESSION: No acute findings. No evidence of fracture. Electronically Signed: Juliette Gomez MD at 8:07 EDT ,
--- NOTE | 2024-05-10 12:46 | RAD_ITS ---
INDICATION: Sacrococcygeal disorders, not elsewhere classified pain in lower back. pain travels down legs. feels like back pops. EXAMINATION/TECHNIQUE: X-RAY - XR Spine Lumbar Comp W/ Bending Min 6 Views COMPARISON: None. FINDINGS: FINDINGS: L1 vertebral body with moderate compression abnormality, approximately 40% vertebral body height loss, appears likely nonacute. The other vertebral bodies are normal height. No definite acute fracture demonstrated. No subluxation. Moderate curvature convex right. Disc space narrowing with osteophytes throughout most lower thoracic through lumbar levels. Mild facet arthropathy at the lower levels. No subluxation with flexion or extension. No paravertebral soft tissue mass identified. Aortic calcifications noted. RAD/L/S Spine w Bend Min 6 Vw IMPRESSION: No evidence of acute fracture or subluxation. Degenerative changes. Likely chronic L1 compression abnormality. Electronically Signed: Juliette Gomez MD at 8:11 EDT ,
--- NOTE | 2024-05-10 12:50 | RAD_ITS ---
INDICATION: Sacrococcygeal disorders, not elsewhere classified EXAMINATION/TECHNIQUE: X-RAY - XR Sacrum/Coccyx 3 Views COMPARISON: FINDINGS: SACRUM/COCCYX: No displaced fracture, destructive or sclerotic lesions. Note that overlapping bowel shadows may however obscure fine detail in the frontal view. SACRO-ILIAC JOINTS: The articular structures are unremarkable. SOFT TISSUES: No soft tissue swelling or gas. RAD/Sacrum-Coccyx min 2 Views IMPRESSION: No acute bony injury of the sacro-coccygeal spine. Electronically Signed: Zeke Son DO at 18:33 EDT Reading Location ID and State: [facility] / [place] Tel [phone], Service support ,
== END | disposition home or self-care (01) ==
PROVIDERS: PCP Family Medicine
DX: M96.1 Postlaminectomy syndrome, not elsewhere classified (principal); M53.3 Sacrococcygeal disorders, not elsewhere classified; M25.551 Pain in right hip; M25.552 Pain in left hip
CPT/HCPCS: 72114; 72220; 73521